=== PATIENT | male | born 1985 | race Caucasian/White ===

== ENCOUNTER 2021-06-12 15:11 | Emergency (ER) | payer MEDICAID ==
[~2021-06-12] VITALS: Ht 180.3 cm; Wt 87.1 kg
[2021-06-12 15:24] VITALS: BP 122/72
--- NOTE | 2021-06-12 15:33 | NUR ---
PT AMBULATED TO ER BED 7
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
--- NOTE | 2021-06-12 15:53 | NUR ---
DR IYER AT BEDSIDE EVALUATING PT
[2021-06-12] MEDS ORDERED: IBUP-2213 PO (16:10)
[2021-06-12] MEDS ORDERED: ACET-10509 PO (16:10)
[2021-06-12] MEDS ORDERED: CYCL-711 PO (16:10)
--- NOTE | 2021-06-12 16:24 | NUR ---
Patient discharged with v/s stable. Written and verbal after care instructions given and explained. Patient alert, oriented and verbalized understanding of instructions. Ambulatory with steady gait. All questions addressed prior to discharge. ID band removed. Patient advised to follow up with PMD. Rx of ACETAMINOPHEN TAB, CYCLOBENZAPRINE HCI, IBUPROFEN given. Opportunity to ask questions provided and answered.
== END 2021-06-12 16:24 | disposition home or self-care (01) ==
LOC: MED 15:11
DX: M79.18 Myalgia, other site (principal); Z79.1 Long term (current) use of non-steroidal anti-inflammatories (NSAID); Z79.899 Other long term (current) drug therapy
CPT/HCPCS: 99283

== ENCOUNTER 2021-07-10 18:41 | Emergency (ER) | payer MEDICAID ==
[~2021-07-10] VITALS: Ht 180.3 cm; Wt 90.3 kg
[~2021-07-10 18:41] MED LIST: ACET-10509 PO; CYCL-711 PO; IBUP-2213 PO
[2021-07-10 18:55] VITALS: BP 154/91
--- NOTE | 2021-07-10 19:38 | NUR ---
PT SEEN AND EVALUATED BY SAL MORENO.
[2021-07-10] MEDS ORDERED: IBUP-2213 PO (20:02)
[2021-07-10] MEDS ORDERED: ACET-10509 PO (20:02)
--- NOTE | 2021-07-10 20:22 | NUR ---
RAPID COVID AND INFLUENZA COLLECTED. SPECIMENS SENT TO LAB.
--- NOTE | 2021-07-10 20:30 | NUR ---
Patient discharged with v/s stable. Written and verbal after care instructions given and explained. Patient alert, oriented and verbalized understanding of instructions. Ambulatory with steady gait. All questions addressed prior to discharge. ID band removed. Patient advised to follow up with PMD. Rx of TYLENOL AND MOTRIN given. Patient educated on indication of medication including possible reaction and side effects. Opportunity to ask questions provided and answered.
== END 2021-07-10 20:30 | disposition home or self-care (01) ==
LOC: MED 18:41
DX: U07.1 COVID-19 (principal)
CPT/HCPCS: 87804; 99283

== ENCOUNTER 2021-08-04 17:07 | Emergency (ER) | payer MEDICAID ==
[~2021-08-04] VITALS: Ht 13 cm; Wt 89.8 kg
[2021-08-04 17:31] VITALS: BP 147/77
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
[2021-08-04] MEDS ORDERED: IBUP-2213 PO (19:46)
[2021-08-04 20:05] VITALS: BP 147/77
== END 2021-08-04 20:05 | disposition home or self-care (01) ==
LOC: MED 17:07
DX: H11.441 Conjunctival cysts, right eye (principal)
CPT/HCPCS: 70450; 99284